=== PATIENT | female | born 1960 | race African-American/Black ===

== ENCOUNTER 2016-03-16 21:57 | Emergency (ER) | payer OTHER ==
[~2016-03-16] VITALS: Ht 157.5 cm; Wt 54.5 kg
[~2016-03-16 21:57] MED LIST: Benazepril Hcl; CLON0.5T PO
[2016-03-17 04:03] VITALS: BP 146/76
== END 2016-03-17 04:05 | disposition home or self-care (01) ==
LOC: EMS 21:58
DX: K12.1 Other forms of stomatitis (principal); F31.9 Bipolar disorder, unspecified; I10 Essential (primary) hypertension; F41.9 Anxiety disorder, unspecified; F12.90 Cannabis use, unspecified, uncomplicated; Z88.8 Allergy status to other drugs, medicaments and biological substances
CPT/HCPCS: 99284